=== PATIENT | male | born 1995 | race Hispanic/Latino ===

== ENCOUNTER 2023-02-01 20:51 | Emergency (ER) | payer OTHER ==
[2023-02-01] MEDS ORDERED: Ondansetron ODT 4 MG TAB ONE (21:19)
== END 2023-02-01 22:37 | disposition home or self-care (01) ==
LOC: BURERS 20:51
DX: R11.10 Vomiting, unspecified (principal); R19.7 Diarrhea, unspecified
CPT/HCPCS: 87804; 99284; Q0162